=== PATIENT | male | born 1965 | race Caucasian/White ===

== ENCOUNTER → 2018-02-09 07:15 | Outpatient (CLI) | payer BC, SELFPAY ==
[2018-02-09 10:35] LABS: Absolute Lymphocyte Count 1.11 X10^3/ul (0.83-4.51); Absolute Neutrophil Count 3.6 X10^3/uL (2.0-7.7); Basophil# 0.02 X10^3/uL; Basophil% 0.4 % (0-1); Eosinophil# 0.09 X10^3/uL; Eosinophils% 1.6 % (0-5); Hematocrit 49.7 % (40-54); Lymphocyte # 1.11 X10^3/ul (4.0); Mean Corp Hgb Conc 34.2 g/gl (32-36); Mean Corpuscular Hgb 30.4 pg (27.0-32.0); Mean Corpuscular Volume 88.8 fL (80-94); Mean Platelet Vol. 10.7 fl (6.2-12.0); Monocyte# 0.74 X10^3/uL; Monocyte% 13.3 % (0-10); Neutrophil # 3.59 X10^3/uL (2.7-7.7); Neutrophil % 64.5 % (47-70); Platelet Count 202 K/mm3 (150-450); RBC Distribution Width CV 12.7 % (11.6-14.6); RBC Distribution Width SD 41.6 fl (35.1-43.9); White Blood Count 5.6 K/mm3 (4.4-11.0)
[2018-02-09 10:49] LABS: Hemoglobin A1c 7.5 % (4.2-6.3)
[2018-02-09 11:14] LABS: POSITIVE COUNT NO; POSITIVE DIFFERENTIAL NO; POSITIVE MORPHOLOGY NO
[2018-02-09 11:17] LABS: ALB/GLOB Ratio 1.2 RATIO (0.9-2.4); AST(SGOT) 48 U/L (15-37); Alanine Aminotransfer ALT/SGPT 81 U/L (16-61); Albumin, Serum 4.3 g/dL (3.2-5.0); Alkaline Phosphatase 105 U/L (45-117); Anion Gap 7 (5-15); BUN 19 mg/dL (7-18); BUN/Creat Ratio 17.8 RATIO (10-20); Calcium,Total 9.3 mg/dL (8.5-10.1); Chloride 99 mmol/L (98-107); Cholesterol 133 mg/dL (200); Creatinine, Serum 1.07 mg/dL (0.70-1.30); EST Glomerular Filtration Rate 78 mL/min (>60); Est Glom Filt Rate - Afr Amer 94 mL/min (>60); Globulin 3.5 g/dL (2.2-4.2); Glucose 158 mg/dL (74-106); High Density Lipoprotein 51 mg/dL; PSA,Total - Annual Screen 0.93 ng/mL (0.00-4.00); Potassium 4.1 mmol/L (3.5-5.1); Protein, Total 7.8 g/dL (6.4-8.2); Sodium Level 135 mmol/L (136-145); Triglycerides 144 mg/dL; Very Low Density Lipoprotein 29 mg/dL (5-40)
[2018-02-09 11:51] LABS: Microalbumin,Random Urine 37.2 mg/L (NO RANGE EST.); Microalbumin:Creatinine Ratio 40.7 mg/g CRE (<30 mg/g CRE)
== END ==
PROVIDERS: Family Provider Family Medicine; PCP Family Medicine; Visit Provider Family Medicine
DX: E11.9 Type 2 diabetes mellitus without complications (principal); I10 Essential (primary) hypertension; Z12.5 Encounter for screening for malignant neoplasm of prostate
CPT/HCPCS: 36415; 80053; 80061; 82043; 82570; 83036; 84153; 85025; G0103

== ENCOUNTER 2018-04-04 05:38 | Day surgery (SDC) | payer BC, SELFPAY ==
[2018-04-04] VITALS (7 sets, daily range): BP systolic 120–150; BP diastolic 69–108; PULSE 80–87; RESP 16; TEMP 36.4–36.6; O2SAT 93–100; BMI 34.8
--- NOTE | 2018-04-04 06:09 | HP.PCM_ITS ---
Problem List (1) Screening for intestinal cancer Status: Acute History of Present Illness Date of Admission: 04/04/18 The patient is a 52 year old M who presents for screening colonoscopy. He has never had a previous colonoscopy. He has type 2 diabetes but otherwise enjoys good health. Hemoglobin A1c and blood sugar levels are relatively stable. He denies myocardial infarction or stroke. He denies bright red blood per rectum or melena. No abdominal pain. There is no personal or family history of colon polyps or colon cancer. Past Medical History Medical History: Medical History (Last Reviewed 10/05/17 @ 06:48 by ROGERS Pereira) Back pain M54.9 Diabetes E11.9 Neck pain M54.2 Hypertension I10 Allergies Latex, Natural Rubber Allergy (Verified 03/30/18 15:20) Rash Penicillins Allergy (Verified 03/30/18 15:20) Unknown Home Medications: Ambulatory Orders Medication Instructions Recorded Exenatide [Byetta ([facility])] 10 mcg SC BIDAC 11/18/14 Lisinopril/Hydrochlorothiazide 10 mg PO DAILY 11/18/14 [Zestoretic 10/12.5 Tablet] Metformin HCl [Glucophage] 1,000 mg PO BIDCM 11/18/14 Multivitamins,Therapeutic 1 tab PO DAILY 11/18/14 [Multivitamin] Omeprazole [Prilosec] 40 mg PO DAILY 11/18/14 Simvastatin [Zocor] 40 mg PO QHS 11/18/14 Tizanidine HCl [Zanaflex] 4 mg PO Q8H 11/18/14 Celecoxib [Celebrex] 200 mg PO DAILY 11/27/16 Insulin Glargine,Hum.rec.anlog 28 unit SC DAILY 03/30/18 [Tofroylan Leo] Surgical History: Surgical History (Last Reviewed 10/05/17 @ 06:48 by ROGERS Pereira) History of back surgery Z98.890 Smoking Status: Never smoker Review of Systems Constitutional: Denies: Anorexia Eyes: Denies: Blurred vision HEENT: Reports: Difficulty Hearing Cardiovascular: Denies: Chest Pain Respiratory: Denies: Cough Gastrointestinal: Denies: Abdominal Pain Genitourinary: Denies: Dysuria Musculoskeletal: Denies: Arm Pain Neurological: Denies: Balance problems Psychiatric: Denies: Anxiety Endocrine: Denies: Change in Body Habitus VTE Information - Inpt Only VTE Present on Admission: No Patient Problems: Active and Suspected Problems (Last Reviewed 10/05/17 @ 06:48 by ROGERS Pereira ) Screening for intestinal cancer (Acute) - Physical Exam General: Alert, Oriented x3, Cooperative, No apparent distress HEENT: Atraumatic Oral: Moist Mucosa Neck: Supple Lungs: Clear to auscultation Cardiovascular: Regular rate, Regular Rhythm, - - Carotids are 3+, no bruits Abdomen: Bowel Sounds Present, Soft, Non Tender, Non-Distended Extremities: No clubbing Skin: No rashes Lymphatic: No Cervical, Supraclavicular, or Inguinal Adenopathy Neurological: Cranial nerves II-XII grossly intact Psych/Mental Status: Normal Affect Assessment/Plan All Active Problems (Last Reviewed 10/05/17 @ 06:48 by ROGERS Pereira) Screening for intestinal cancer (Acute) URI, acute (Acute) I am recommending a screening colonoscopy with possible biopsy or polypectomy is indicated. I discussed the technique, benefits, risks, alternatives. He has had an opportunity to ask and have questions answered. We will proceed as noted. Miky Dowling M.D., F.A.C.S.
--- NOTE | 2018-04-04 06:30 | COLBX_PTH ---
PATIENT: BRET LUTZ LOC: EN U#:[id number] AGE/SX: 52/M ROOM: RE04/04/[address]: Dr. Miky Dowling MD : [id number] BED: DIS: 04/04/2018 SPEC #: [id number] RECD: 04/04/18 14:20 STATUS: ERICK DAYRON #: [id number] SHANELLE: 04/04/18 06:[address]: Miky Dowling DEPT: SURGICAL PATHOLOGY RECD BY: Estrella Luz ENTERED: 04/04/18 14:48 SP TYPE: COLON BX OTHR DR: Dr. Chris Perry, Tissues: Descending colon Procedures: Surgery Specimen Level IV HEADER OPERATION: Colonoscopy (MOD) PRE-OP DIAGNOSIS: Screening TISSUE SUBMITTED: Polyp, descending colon MICROSCOPIC DIAGNOSIS Polyp descending colon, biopsy: Tubular adenoma. SJ:ursula 04/05/18 MICROSCOPIC DESCRIPTION Slides are reviewed. GROSS DESCRIPTION Received in fixative is one container labeled with the patient's name and designated descending colon polyp. The specimen consists of two irregular fragments of light yost soft tissue that in aggregate measure 0.7 x 0.5 x 0.2 cm. The specimen is totally submitted in one cassette. / AM:ursula 04/04/18 TC:1 CPT: 14055
--- NOTE | 2018-04-04 07:08 | PCM.OPRPT ---
Problem List (1) Screening for intestinal cancer Status: Acute Report of Operation Date of Procedure: 04/04/18 Pre-Operative Diagnosis: Screening for intestinal cancer Post-Operative Diagnosis: Sessile polyp of the descending colon. Sigmoid diverticulosis. Grade 2 internal hemorrhoids Surgery/Procedure Performed:: Colonoscopy with hot snare polypectomy Description of Surgical Findings:: Timeout and informed consent was obtained. 52-year-old gentleman was taken to the endoscopy suite. He was placed in a left lateral decubitus position. 100 mg Demerol 3.5 g of Versed were given as intravenous sedation. Digital rectal exam performed. Moderate internal and external hemorrhoids. 2+ smooth prostate. No mass lesions. Flexible colonoscope inserted the rectum advanced to a slightly tortuous sigmoid colon the scope was then nicely advanced to the transverse colon and with some transabdominal pressure is advanced to the cecum. The cecum ileocecal valve was nicely achieved. Bowel prep was quite good. The scope was carefully withdrawn from the cecum ascending colon transverse colon into the mid to distal sigmoid colon where a 8 mm diameter sessile polyp was identified. Photograph was obtained. Hot snare was used to resect this. Very small fragment was further removed with a cold forcep biopsy. Hemostasis was intact. The scope was then further withdrawn. Moderate sigmoid diverticulosis identified. No evidence of acute inflammatory change. The scope was withdrawn to the rectum. It was retroflexed. The anorectal verge inspected. Hemorrhoidal changes noted. No active bleeding. Excess fluid and air was aspirated free the procedure was completed with patient tolerating it well. Impression Sessile polyp of the descending colon Sigmoid diverticulosis Grade 2 internal hemorrhoids The patient will be notified of pathology results as they become available. This was his very initial colonoscopy. Consider follow-up colonoscopy in 3 years pending pathology. The scope was inserted 0646. The cecum was reached at 0651. The procedure was completed at 0703. Cc: Dr. Chris Dowling M.D., F.A.C.S. Type of Anesthesia:: IV Sedation
== END 2018-04-04 07:47 | disposition home or self-care (01) ==
LOC: EN 05:39 → AC 05:40
PROVIDERS: Family Provider Family Medicine; PCP Family Medicine; Visit Provider Surgery
PROC: 0DJD8ZZ Inspection of Lower Intestinal Tract, Via Natural or Artificial Opening Endoscopic (ICD-10-PCS; CPT 45378; principal; 2018-04-04 06:25)
DX: Z12.11 Encounter for screening for malignant neoplasm of colon (principal); D12.4 Benign neoplasm of descending colon; K57.30 Diverticulosis of large intestine without perforation or abscess without bleeding; K64.1 Second degree hemorrhoids; E11.9 Type 2 diabetes mellitus without complications; I10 Essential (primary) hypertension; Z79.4 Long term (current) use of insulin; Z79.899 Other long term (current) drug therapy
CPT/HCPCS: 45380; 88305; 99152; 99153; J7120

== ENCOUNTER 2018-11-17 10:26 | Day surgery (SDC) | payer OTHER, SELFPAY ==
[2018-11-15 14:06] VITALS: BMI 35.2
[2018-11-17] VITALS (7 sets, daily range): BP systolic 123–135; BP diastolic 83–94; PULSE 83–93; RESP 15–16; TEMP 36.1–36.7; O2SAT 93–96; BMI 34.7
--- NOTE | 2018-11-17 10:31 | EKG12_ITS ---
Test Reason : PREOP Blood Pressure : / mmHG Vent. Rate : 080 BPM Atrial Rate : 080 BPM P-R Int : 162 ms QRS Dur : 132 ms QT Int : 394 ms P-R-T Axes : 049 053 010 degrees QTc Int : 454 ms Normal sinus rhythm Right bundle branch block Abnormal ECG When compared with ECG of 09-MAR-2013 15:28, No significant change was found Confirmed by SONNY AREVALO, SABRA ([id number]), editor farm journal SHAHAB ALANIZ ([id number]) on 11/21/2018 1:16:25 PM Referred By: Miky Dowling Confirmed By:SABRA DENNIS MD
[2018-11-17 10:51] LABS: Hemoglobin 16.6 g/dl (13.0-16.5); Mean Corp Hgb Conc 33.9 g/gl (32-36); Mean Corpuscular Hgb 30.2 pg (27.0-32.0); Mean Corpuscular Volume 89.1 fL (80-94); Mean Platelet Vol. 9.9 fl (6.2-12.0); Platelet Count 178 K/mm3 (150-450); RBC Distribution Width CV 12.8 % (11.6-14.6); RBC Distribution Width SD 42.2 fl (35.1-43.9); White Blood Count 5.8 K/mm3 (4.4-11.0)
[2018-11-17 10:52] LABS: Scan Indicated on CBC? Y/N NO
[2018-11-17 11:06] LABS: Anion Gap 3 (5-15); BUN 18 mg/dL (7-18); BUN/Creat Ratio 18.1 RATIO (10-20); Chloride 105 mmol/L (98-107); EST Glomerular Filtration Rate 84 mL/min (>60); Est Glom Filt Rate - Afr Amer 102 mL/min (>60); Glucose 152 mg/dL (74-106); Potassium 4.2 mmol/L (3.5-5.1); Sodium Level 138 mmol/L (136-145)
--- NOTE | 2018-11-17 12:58 | PCM.DC.GS ---
Discharge Diet: Light diet - advance as tolerated - if you have questions about your diet instructions, please talk to you doctor. Discharge Activity: May Not Drive - for 3-5days or while taking narcotic pain medicine. May shower in (days): 1 Lifting Restrictions: 10 pounds Call your doctor if your incision/area has: Continuous Slow Oozing, Sudden Increased Bleeding, Increased Pain/ Swelling, Increased Redness, Foul Smelling Discharge Call your doctor if you observe: Fever of 101 or Higher Suture Line Care: Avoid Pulling/Pushing, Avoid Pinching/Bending Additional Dressing/Incision Instructions:: Change or remove dressing in 4 days. Leave steri-strips in place for 1 week. Allergies/Adverse Reactions: Allergies Penicillins Allergy (Mild, Verified 11/16/18 10:10) hives Latex, Natural Rubber Allergy (Verified 11/16/18 10:10) Rash Medications to take at Discharge Exenatide [Byetta ([facility])] 10 mcg SC BIDAC 11/18/14 Lisinopril/Hydrochlorothiazide [Zestoretic 10/12.5 Tablet] 10 mg PO DAILY 11/18/14 Metformin HCl [Glucophage] 1,000 mg PO BIDCM 11/18/14 Multivitamins,Therapeutic [Multivitamin] 1 tab PO DAILY 11/18/14 Simvastatin [Zocor] 40 mg PO QHS 11/18/14 Tizanidine HCl [Zanaflex] 4 mg PO QHS 11/18/14 omeprazole 40 mg capsule,delayed release 20 mg PO DAILY cap 04/21/18 insulin glargine (U-100) 100 unit/mL (3 mL) subcutaneous pen See Rx Instructions SC BID ml 08/24/18 cholecalciferol (vitamin D3) 5,000 unit capsule 5,000 unit PO DAILY 11/15/18 zolpidem 10 mg tablet 10 mg PO QHS PRN 11/15/18 Aspirin E.C. [Ecotrin] 81 mg PO DAILY@0800 11/16/18 Hydrocodone Bitart/Apap 5-325 [[place] 5MG-325MG] 1 tablet PO Q4H PRN PRN 3 Days #10 tablet 11/17/18 The following prescriptions were given: Hydrocodone Bitart/Apap 5-325 [[place] 5MG-325MG] 1 tablet PO Q4H PRN PRN 3 Days #10 tablet PRN Reason: Pain Primary Care Physician: Chris Perry DO [Primary Care Provider] - Test Results: Test results from this visit will be discussed in further detail at your follow-up appointment, if applicable. Please Follow Up With: Miky Dowling MD - [phone] When: Call to make an appointment to be seen in about 10 days.
[2018-11-17 13:10] LABS: Bedside Glucose 141 mg/dL (70-110)
[2018-11-17] MEDS: Bupivacaine Mpf 0.5% 30 ML VIAL (14:20)
--- NOTE | 2018-11-17 14:28 | PCM.OPRPT ---
Problem List (1) Recurrent right inguinal hernia Status: Acute (2) Left inguinal hernia Status: Acute Report of Operation Date of Procedure: 11/17/18 Pre-Operative Diagnosis: Recurrent right inguinal hernia. Left inguinal hernia Post-Operative Diagnosis: Recurrent indirect right inguinal hernia. Indirect left inguinal hernia Surgery/Procedure Performed:: Laparoscopic repair of recurrent right inguinal hernia. Laparoscopic repair left inguinal hernia. The right large Bard 3 DMax mesh reference #[id number]. Lot number [employer] [id number]. Expiry date 01/24/2023. The left large Bard 3 DMax mesh reference #[id number]. Lot number [employer] [id number]. Expiry date 06/26/2023 Description of Surgical Findings:: Timeout and informed consent was obtained. Gent was taken down from placement table underwent general tracheal intubation and anesthesia. Clindamycin 900 mg was given intravenous preoperatively. The abdomen sterilely prepped draped. 0.5% Marcaine was used as local anesthetic. Throughout the procedure total 30 cc was used. Skin sites were pre-anesthetized. A vertical infraumbilical incision was created holding sutures of 0 Vicryl placed varies needle inserted saline drop test performed the abdomen was insufflated CO2 to a pressure of 10 minutes of mercury. Primary trocar sites were placed in the right and left lower quadrants. Ileal inguinal nerve blocks were performed bilaterally under laparoscopic control. The left groin was addressed first the peritoneum superior lateral to the internal ring was incised carried medially. The peritoneum was completely dissected free. A moderate-sized cord lipoma was identified this was completely inverted. Were needed hemostasis obtained with hemo-lock clips. The direct indirect and femoral area was nicely dissected. A Bard 3 DMax large left mesh was placed so as to cover the defect area it was secured laterally superiorly and medially with secure strap. End of the right groin was addressed in a similar fashion by incising the peritoneum and reflecting it. A small indirect right inguinal hernia was identified. The dissection was completed as it was on the left. A Bard 3 DMax large right mesh was selected it to nicely fit in the position it was secured medially superiorly and laterally with secure strap. Then the peritoneum was approximated to itself bilaterally completely obliterating access to the mesh. This also was performed with a secure strap. Excellent placement of the mesh and replacement of the peritoneum was achieved. Trochars removed under visualization the abdomen was allowed to deflate the CO2 the fascia at the umbilicus approximated with a [id number] suture of 0 Vicryl. Skin edges approximated up to 4 Monocryl subdermal stitches. Steri-Strips Telfa and OpSite dressings applied. Sponge and instrument and needle counts were reported the surgeon be correct. Blood loss was minimal. Specimens none. Drains none. Blood loss minimal. Miky Dowling M.D., F.A.C.S. Type of Anesthesia:: General Anesthesiologist: Sha Ramirez
--- NOTE | 2018-11-17 14:32 | OP.PCM_ITS ---
Problem List (1) Recurrent right inguinal hernia Status: Acute (2) Left inguinal hernia Status: Acute Report of Operation Date of Procedure: 11/17/18 Pre-Operative Diagnosis: Recurrent right inguinal hernia. Left inguinal hernia Post-Operative Diagnosis: Recurrent indirect right inguinal hernia. Indirect left inguinal hernia Surgery/Procedure Performed:: Laparoscopic repair of recurrent right inguinal hernia. Laparoscopic repair left inguinal hernia. The right large Bard 3 DMax mesh reference #[id number]. Lot number [employer] [id number]. Expiry date 01/24/2023. The left large Bard 3 DMax mesh reference #[id number]. Lot number [employer] [id number]. Expiry date 06/26/2023 Description of Surgical Findings:: Timeout and informed consent was obtained. Gent was taken down from placement table underwent general tracheal intubation and anesthesia. Clindamycin 900 mg was given intravenous preoperatively. The abdomen sterilely prepped draped. 0.5% Marcaine was used as local anesthetic. Throughout the procedure total 30 cc was used. Skin sites were pre-anesthetized. A vertical infraumbilical incision was created holding sutures of 0 Vicryl placed varies needle inserted saline drop test performed the abdomen was insufflated CO2 to a pressure of 10 minutes of mercury. Primary trocar sites were placed in the right and left lower quadrants. Ileal inguinal nerve blocks were performed bilaterally under laparoscopic control. The left groin was addressed first the peritoneum superior lateral to the internal ring was incised carried medially. The cedric toneum was completely dissected free. A moderate-sized cord lipoma was identified this was completely inverted. Were needed hemostasis obtained with hemo-lock clips. The direct indirect and femoral area was nicely dissected. A Bard 3 DMax large left mesh was placed so as to cover the defect area it was secured laterally superiorly and medially with secure strap. End of the right groin was addressed in a similar fashion by incising the peritoneum and reflecting it. A small indirect right inguinal hernia was identified. The dissection was completed as it was on the left. A Bard 3 DMax large right mesh was selected it to nicely fit in the position it was secured medially superiorly and laterally with secure strap. Then the peritoneum was approximated to itself bilaterally completely obliterating access to the mesh. This also was performed with a secure strap. Excellent placement of the mesh and replacement of the peritoneum was achieved. Trochars removed under visualization the abdomen was allowed to deflate the CO2 the fascia at the umbilicus approximated with a [id number] suture of 0 Vicryl. Skin edges approximated up to 4 Monocryl subdermal stitches. Steri-Strips Telfa and OpSite dressings applied. Sponge and instrument and needle counts were reported the surgeon be correct. Blood loss was minimal. Specimens none. Drains none. Blood loss minimal. Miky Dowling M.D., F.A.C.S. Type of Anesthesia:: General Anesthesiologist: Sha Ramirez
[2018-11-17 15:16] LABS: Bedside Glucose 144 mg/dL (70-110)
== END 2018-11-17 16:49 | disposition home or self-care (01) ==
LOC: SDC 10:27 → AC 10:28
PROVIDERS: Family Provider Family Medicine; PCP Family Medicine; Referring Provider Surgery; Visit Provider Surgery
PROC: (CPT 49650; principal; 2018-11-17 12:10)
DX: K40.91 Unilateral inguinal hernia, without obstruction or gangrene, recurrent (principal); K40.90 Unilateral inguinal hernia, without obstruction or gangrene, not specified as recurrent; I10 Essential (primary) hypertension; E11.9 Type 2 diabetes mellitus without complications; K21.9 Gastro-esophageal reflux disease without esophagitis; E78.00 Pure hypercholesterolemia, unspecified; Z79.4 Long term (current) use of insulin; Z79.82 Long term (current) use of aspirin; Z79.899 Other long term (current) drug therapy
CPT/HCPCS: 49650; 49651; 36415; 80048; 82962; 83036; 85027; 93005; J7120; C1781; J2405

== ENCOUNTER → 2020-01-09 | Outpatient (CLI) | payer OTHER, SELFPAY ==
[2019-11-11 10:44] VITALS: BMI 34.7
[2020-01-09 12:04] LABS: Absolute Lymphocyte Count 1.61 X10^3/uL (0.83-4.51); Absolute Neutrophil Count 3.8 X10^3/uL (2.0-7.7); Basophil# 0.04 X10^3/uL; Basophil% 0.6 % (0-1); Eosinophil# 0.07 X10^3/uL; Eosinophils% 1.1 % (0-5); Hematocrit 50.1 % (40-54); Hemoglobin 16.6 g/dL (13.0-16.5); Lymphocyte # 1.61 X10^3/ul (4.0); Lymphocyte % 25.9 % (19-41); Mean Corp Hgb Conc 33.1 g/dL (32-36); Mean Corpuscular Hgb 29.8 pg (27.0-32.0); Mean Corpuscular Volume 89.9 fL (80-94); Mean Platelet Vol. 10.7 fl (6.2-12.0); Monocyte# 0.67 X10^3/uL; Monocyte% 10.8 % (0-10); NRBC Flagged by Analyzer 0 % (0-5); Neutrophil # 3.81 X10^3/uL (2.7-7.7); Neutrophil % 61.3 % (47-70); Platelet Count 188 K/mm3 (150-450); RBC Distribution Width CV 12.9 % (11.6-14.6); RBC Distribution Width SD 42.5 fl (35.1-43.9); Red Blood Count 5.57 M/mm3 (4.6-6.2); White Blood Count 6.2 K/mm3 (4.4-11.0)
[2020-01-09 12:14] LABS: ALB/GLOB Ratio 1.2 RATIO (0.9-2.4); AST(SGOT) 37 U/L (15-37); Alanine Aminotransfer ALT/SGPT 68 U/L (16-61); Alkaline Phosphatase 73 U/L (45-117); Anion Gap 11 (5-15); BUN 23 mg/dL (7-18); BUN/Creat Ratio 20.2 RATIO (10-20); Calcium,Total 9.1 mg/dL (8.5-10.1); Chloride 99 mmol/L (98-107); Cholesterol 138 mg/dL (200); Creatinine, Serum 1.14 mg/dL (0.70-1.30); EST Glomerular Filtration Rate 72 mL/min (>60); Est Glom Filt Rate - Afr Amer 87 mL/min (>60); Globulin 3.3 g/dL (2.2-4.2); Glucose 108 mg/dL (74-106); High Density Lipoprotein 54 mg/dL; PSA,Total - Annual Screen 0.81 ng/mL (0.00-4.00); Potassium 4.2 mmol/L (3.5-5.1); Protein, Total 7.3 g/dL (6.4-8.2); Sodium Level 139 mmol/L (136-145); Triglycerides 84 mg/dL; Very Low Density Lipoprotein 17 mg/dL (5-40)
[2020-01-09 12:17] LABS: Hemoglobin A1c 6.5 % (4.2-6.3)
[2020-01-09 12:22] LABS: Microalbumin,Random Urine 7.8 mg/L (NO RANGE EST.); Microalbumin:Creatinine Ratio 6.4 mg/g CRE (<30 mg/g CRE)
[2020-01-11 03:39] LABS: SAR-COV-2 IGG ANTIBODY Negative (Negative); SAR-COV-2 IGM ANTIBODY Negative (Negative)
== END | disposition home or self-care (01) ==
LOC: BFHLAB 09:30
PROVIDERS: PCP Family Medicine; Visit Provider Family Medicine
DX: E11.9 Type 2 diabetes mellitus without complications (principal); I10 Essential (primary) hypertension; R74.8 Abnormal levels of other serum enzymes; Z12.5 Encounter for screening for malignant neoplasm of prostate; Z20.828 Contact with and (suspected) exposure to other viral communicable diseases
CPT/HCPCS: 36415; 80053; 80061; 82043; 82570; 83036; 84153; 85025; 86769; G0103

== ENCOUNTER → 2020-07-10 08:10 | Outpatient (CLI) | payer OTHER, SELFPAY ==
[2019-11-11 10:44] VITALS: BMI 34.7
[2020-07-10 12:13] LABS: Absolute Lymphocyte Count 1.78 X10^3/uL (0.83-4.51); Absolute Neutrophil Count 3.6 X10^3/uL (2.0-7.7); Basophil# 0.05 X10^3/uL; Basophil% 0.8 % (0-1); Eosinophil# 0.12 X10^3/uL; Hematocrit 52.7 % (40-54); Lymphocyte # 1.78 X10^3/ul (4.0); Lymphocyte % 29.1 % (19-41); Mean Corp Hgb Conc 32.3 g/dL (32-36); Mean Corpuscular Hgb 29.1 pg (27.0-32.0); Mean Corpuscular Volume 90.2 fL (80-94); Mean Platelet Vol. 10.2 fl (6.2-12.0); Monocyte# 0.53 X10^3/uL; Monocyte% 8.7 % (0-10); NRBC Flagged by Analyzer 0 % (0-5); Neutrophil # 3.62 X10^3/uL (2.7-7.7); Neutrophil % 59.1 % (47-70); Platelet Count 219 K/mm3 (150-450); RBC Distribution Width CV 12.3 % (11.6-14.6); RBC Distribution Width SD 40.3 fl (35.1-43.9); Red Blood Count 5.84 M/mm3 (4.6-6.2); White Blood Count 6.1 K/mm3 (4.4-11.0)
[2020-07-10 12:54] LABS: Hemoglobin A1c 6.5 % (3.8-5.6)
[2020-07-10 13:13] LABS: ALB/GLOB Ratio 1.2 RATIO (0.9-2.4); AST(SGOT) 47 U/L (15-37); Alanine Aminotransfer ALT/SGPT 88 U/L (16-61); Albumin, Serum 4.2 g/dL (3.2-5.0); Alkaline Phosphatase 94 U/L (45-117); Anion Gap 7 (5-15); BUN 21 mg/dL (7-18); BUN/Creat Ratio 19.1 RATIO (10-20); Calcium,Total 9.1 mg/dL (8.5-10.1); Chloride 99 mmol/L (98-107); Cholesterol 138 mg/dL (200); EST Glomerular Filtration Rate 75 mL/min (>60); Est Glom Filt Rate - Afr Amer 90 mL/min (>60); Globulin 3.4 g/dL (2.2-4.2); Glucose 140 mg/dL (74-106); High Density Lipoprotein 58 mg/dL; Potassium 4.2 mmol/L (3.5-5.1); Protein, Total 7.6 g/dL (6.4-8.2); Sodium Level 134 mmol/L (136-145); Triglycerides 128 mg/dL; Very Low Density Lipoprotein 26 mg/dL (5-40)
== END ==
PROVIDERS: PCP Family Medicine; Visit Provider Family Medicine
DX: E11.9 Type 2 diabetes mellitus without complications (principal); I10 Essential (primary) hypertension; R80.9 Proteinuria, unspecified
CPT/HCPCS: 36415; 80053; 80061; 83036; 85025

== ENCOUNTER → 2020-11-04 14:34 | Outpatient (CLI) | payer OTHER, SELFPAY ==
[2020-09-25 13:25] VITALS: BMI 35.9
--- NOTE | 2020-11-04 14:37 | US_ITS ---
STUDY: SCROTUM ULTRASOUND REASON FOR EXAM: Male, 54 years old. L GROIN/SCROTAL PAIN, QUESTION EPIDIDYMITIS TECHNIQUE: Ultrasound evaluation of the scrotum was performed with color Doppler and static prabhakar-scale imaging. COMPARISON: None. FINDINGS: RIGHT TESTICLE INTRATESTICULAR: There is a normal size of the right testicle. The right testicle measures 4.5 x 3.2 x 2.9 cm. There is a homogenous echotexture. There is normal arterial and normal venous vascularity. There is no demonstrated right testicular mass or cyst. EXTRATESTICULAR: The epididymis is normal in size. The epididymis head measures 1.0 x 1.2 x 0.9 cm. There is normal vascularity of the epididymis. There is a well-defined cystic structure within the epididymis, without internal echoes, consistent with an epididymal cyst. One epididymal cyst measures 4.2 cm in diameter. There is no demonstrated hydrocele. There is no demonstrated varicocele. There is no demonstrated extratesticular mass or cyst. LEFT TESTICLE INTRATESTICULAR: There is a normal size of the left testicle. The left testicle measures 4.2 x 3.5 x 3.0 cm. There is a homogenous echotexture. There is normal arterial and normal venous vascularity. There is no demonstrated left testicular mass or cyst. EXTRATESTICULAR: The epididymis is enlarged. The epididymis head measures cm. There is normal vascularity of the epididymis. There is a well-defined cystic structure within the epididymis, without internal echoes, consistent with an epididymal cyst. There are multiple epididymal cysts with the largest measuring 4 x 6 cm. There is no demonstrated hydrocele. There is no demonstrated varicocele. There is no demonstrated extratesticular mass or cyst. US/Testicular with Arterial Flow IMPRESSION: Normal bilateral testicles. Large epididymal cysts bilaterally. Electronically Signed: Wesley Montalvo MD at 15:40 EST Tel , Service support ,
== END ==
PROVIDERS: PCP Family Medicine; Referring Provider Family Medicine; Visit Provider Family Medicine
DX: N50.82 Scrotal pain (principal)
CPT/HCPCS: 76870; 93976

== ENCOUNTER 2020-11-20 08:23 | Day surgery (SDC) | payer OTHER, SELFPAY ==
[2020-09-25 13:25] VITALS: BMI 35.9
[2020-11-20] VITALS (7 sets, daily range): BP systolic 137–155; BP diastolic 76–113; PULSE 74–89; RESP 16–18; TEMP 36.3–37.2; O2SAT 92–98; BMI 36.0
--- NOTE | 2020-11-20 09:15 | PCM.HP.STD ---
Problem List (1) Spermatocele Status: Acute History of Present Illness Date of Admission: 11/20/20 Chief Complaint: Spermatocele left The patient is a 54 year old male presents with a symptomatic painful left spermatocele plan proceed with a spermatocelectomy. 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 Carpal tunnel syndrome, bilateral (Acute) G56.03 Bilateral inguinal hernia K40.20 Allergies Penicillins Allergy (Mild, Verified 11/13/20 14:10) hives latex Allergy (Verified 11/13/20 14:10) Rash Home Medications: Ambulatory Orders Medication Instructions Recorded Lisinopril/Hydrochlorothiazide 10 mg PO DAILY 11/18/14 [Zestoretic 10/12.5 Tablet] Simvastatin [Zocor] 40 mg PO DAILY 11/18/14 metFORMIN HCl [Glucophage] 1,000 mg PO BIDCM 11/18/14 insulin glargine 100 unit/mL (3 36 units SC BID ml 08/24/ mL) subcutaneous pen exenatide 10 mcg SC BIDAC 09/29/19 omeprazole 20 mg capsule,delayed 20 mg PO DAILY cap 09/25/20 release tizanidine 4 mg tablet 4 mg PO QHS PRN PRN tab 09/25/20 zolpidem 10 mg tablet 10 mg PO QHS tab 09/25/20 Surgical History: Surgical History (Last Reviewed 09/25/20 @ 13:30 by Lucia Fernández) History of colonoscopy (Acute) Onset Date: ~03/2018 Z98.890 History of right inguinal hernia repair (Acute) Z98.890, Z87.19 History of carpal tunnel release (Acute) Z98.890 History of back surgery (Acute) Z98.890 H/O microdiscectomy (Acute) Z98.890 S/P bilateral inguinal herniorrhaphy Onset Date: ~11/17/18 Z98.890, Z87.19 Surgical History: no surgical history Smoking Status: Never smoker Review of Systems Constitutional: Denies: Chills, Fever, Weight Change HEENT: Denies: Head Aches, Sinus Congestion, Sinus Drainage Cardiovascular: Denies: Chest Pain, Palpitations Respiratory: Denies: Cough, Shortness of breath at rest, Sputum production Gastrointestinal: Denies: Abdominal Pain, Nausea, Vomiting Genitourinary: Denies: Dysuria Musculoskeletal: Denies: Joint Pain, Joint Tenderness Skin: Denies: Rash, Wounds Neurological: Denies: Numbness, Tingling, Focal weakness Psychiatric: Denies: Anxiety, Depression, Homicidal Ideations, Suicidal Ideations Hematologic/ Lymphatic: Denies: Easy Bruising, Easy Bleeding VTE Information - Inpt Only VTE Present on Admission: No - Physical Exam Vitals/I&O's: Vital Signs Temp Pulse Resp BP Pulse Ox 99.0 F 75 16 137/100 H 98 11/20/20 08:50 11/20/20 08:50 11/20/20 08:50 11/20/20 08:50 11/20/20 08:50 Oxygen Delivery Method Room Air Weight: 117.2 kg Body Mass Index (BMI) 36.0 General: Alert, Oriented x3, Cooperative HEENT: Atraumatic, PERRLA, EOMI, Normocephalic Neck: Supple, No JVD, Negative Carotid Bruits Lungs: Clear to auscultation, Normal air movement Cardiovascular: Regular rate, No murmurs Abdomen: Bowel Sounds Present, Soft, Non Tender Extremities: No edema, Capillary Refill Less than 3 Seconds Skin: No rashes, No breakdown Musculoskeletal: No Tenderness to Palpation of Joints or Extremities Neurological: Cranial nerves II-XII grossly intact Psych/Mental Status: Normal Affect, Appropriate Microbiology Past 72 Hours 11/19/20 08:35 Interface Orders SARS-CoV-2 Antigen (Rapid) - Final Current Medications Cefazolin Sodium 2 gm/ Sodium (Chloride) 110 mls @ 150 mls/hr IV PREOP ONE Stop: 11/20/20 10:58 Assessment/Plan All Active Problems (Last Reviewed 09/25/20 @ 13:30 by Lucia M Pradeep) Spermatocele (Acute) Left groin pain (Acute) Bronchitis (Acute) URI (upper respiratory infection) (Acute) Conjunctivitis, right eye (Acute) Recurrent right inguinal hernia (Acute) Left inguinal hernia (Acute) History of colonoscopy (Acute ~03/2018) History of right inguinal hernia repair (Acute) History of carpal tunnel release (Acute) Diabetes (Acute) Neck pain (Acute) Back pain (Acute) History of back surgery (Acute) Cancer of skin of right ear (Resolved) Carpal tunnel syndrome, bilateral (Acute) H/O microdiscectomy (Acute) Screening for intestinal cancer (Acute) URI, acute (Acute) Plan for a left spermatocelectomy
--- NOTE | 2020-11-20 09:16 | DCINST_ITS ---
Discharge Diet: Light diet - advance as tolerated Discharge Activity: Return to Normal Activity Allergies/Adverse Reactions: Allergies Penicillins Allergy (Mild, Verified 11/13/20 14:10) hives latex Allergy (Verified 11/13/20 14:10) Rash Medications to take at Discharge Lisinopril/Hydrochlorothiazide [Zestoretic 10/12.5 Tablet] 10 mg PO DAILY 11/18/14 Simvastatin [Zocor] 40 mg PO DAILY 11/18/14 metFORMIN HCl [Glucophage] 1,000 mg PO BIDCM 11/18/14 insulin glargine 100 unit/mL (3 mL) subcutaneous pen 36 units SC BID ml 08/24/18 exenatide 10 mcg SC BIDAC 09/29/19 omeprazole 20 mg capsule,delayed release 20 mg PO DAILY cap 09/25/20 tizanidine 4 mg tablet 4 mg PO QHS PRN PRN tab 09/25/20 zolpidem 10 mg tablet 10 mg PO QHS tab 09/25/20 Primary Care Physician: Chris Perry DO [Primary Care Provider] - Test Results: Test results from this visit will be discussed in further detail at your follow- up appointment, if applicable. Please Follow Up With: Ernesto Wadsworth MD When: in 2 weeks, please call to make an appointment.
[2020-11-20] MEDS: Lactated Ringers 1,000 ML 100 ML IV (09:19)
[2020-11-20 09:26] LABS: Bedside Glucose 154 mg/dL (70-110)
[2020-11-20] MEDS: Cefazolin 2 GM in 0.9% Normal Saline 100 ML IV (10:26)
[2020-11-20] MEDS: Bupivacaine 0.25% 30 ML Vial (11:09)
--- NOTE | 2020-11-20 11:29 | PCM.OPRPT ---
Problem List (1) Spermatocele Status: Acute Report of Operation Date of Procedure: 11/20/20 Pre-Operative Diagnosis: Bilateral large symptomatic spermatoceles Post-Operative Diagnosis: Same Surgery/Procedure Performed:: Right spermatocelectomy, and left spermatocelectomy Description of Surgical Findings:: In the preoperative setting the patient was consulted regarding the spermatocele. We discussed the options of management including observation, surgical excision, continued medical management and antibiotics. We discussed the risk of the surgery including the risk of bleeding, infection, abscess formation, and also the risk of recurrence of this spermatocele. He also understands that removing the spermatocele may not alleviate pain . After discussion with the patient he signed the consent form and is taken back to the operating room. Patient was taken back to the operating room, he underwent a timeout procedure was identified by the nursing staff. He then was placed supine on the table and underwent general anesthesia. The penis testicles were shaved prepped and draped in usual sterile fashion. I then palpated the spermatocele on the Left side of the scrotum above the testicle which was very large. The spermatocele then brought close to the skin of the scrotum on that side and I infiltrated above the spermatocele with a skin with Marcaine 1% for local anesthesia. Then using a 15 blade knife a small 3-1/2 cm incision was made above the spermatocele. I then using hemostats I spread this incision and then the tunica albuginea was grabbed using 2 Allises the tunica albuginea was then opened up and then this allowed me to region the small incision with a long Allis to grab the head of the spermatocele. I then pulled the spermatocele head through the small incision and used a needle to drain it and then I continued to pull the spermatocele through the small incision draining all the fluid out and then the sac was slowly delivered to the small incision I use electrocautery with a pinpoint needle to dissect the spermatocele sac off the testicle. Once the entire sac was delivered to the small incision then the testicle placed back in proper position the major there was a good hemostasis. I then palpated the spermatocele on the right side of the scrotum above the testicle about 3cm in size. I then using hemostats I spread this incision and then the tunica albuginea was grabbed using 2 Allises the tunica albuginea was then opened up and then this allowed me to region the small incision with a long Allis to grab the head of the spermatocele. I then pulled the spermatocele head through the small incision and used a needle to drain it and then I continued to pull the spermatocele through the small incision draining all the fluid out and then the sac was slowly delivered to the small incision I use electrocautery with a pinpoint needle to dissect the spermatocele sac off the testicle. Once the entire sac was delivered to the small incision then the testicle placed back in proper position the major there was a good hemostasis. I then closed the dartos layer with chromic and then closed the skin layer with a running Monocryl stitches fluff dressings and scrotal support was placed on the testicles patient acetic was reversed and is taken back to the PACU in good condition. Type of Anesthesia:: General Drains: none - Admit VTE Documentation VTE Present on Admission: No
[2020-11-20 11:36] LABS: Bedside Glucose 110 mg/dL (70-110)
[2020-11-20] MEDS: Ketorolac 15 MG/ML Vial IV (11:39)
[2020-11-20] MEDS: oxyCODONE 5 MG Tablet PO (12:57)
== END 2020-11-20 13:20 | disposition home or self-care (01) ==
LOC: SDC 08:24 → AC 08:24
PROVIDERS: PCP Family Medicine; Referring Provider Urology; Visit Provider Urology
PROC: (CPT 54840; principal; 2020-11-20 10:15)
DX: N43.42 Spermatocele of epididymis, multiple (principal); I10 Essential (primary) hypertension; E11.9 Type 2 diabetes mellitus without complications; Z79.4 Long term (current) use of insulin; K21.9 Gastro-esophageal reflux disease without esophagitis; E78.00 Pure hypercholesterolemia, unspecified; Z79.899 Other long term (current) drug therapy; Z20.822 Contact with and (suspected) exposure to COVID-19
CPT/HCPCS: 00920; 54840; 82962; 87426; C9803; J7120; J2405

== ENCOUNTER → 2020-12-24 07:54 | Outpatient (CLI) | payer OTHER, SELFPAY ==
[2020-11-20 08:50] VITALS: BMI 36.0
[2020-12-24 10:34] LABS: Hemoglobin A1c 6.2 % (3.8-5.6)
[2020-12-24 10:38] LABS: Microalbumin,Random Urine 30.2 mg/L (NO RANGE EST.); Microalbumin:Creatinine Ratio 30.7 mg/g CRE (<30 mg/g CRE)
[2020-12-24 10:44] LABS: ALB/GLOB Ratio 1.3 RATIO (0.9-2.4); AST(SGOT) 33 U/L (15-37); Alanine Aminotransfer ALT/SGPT 69 U/L (16-61); Albumin, Serum 4.1 g/dL (3.2-5.0); Alkaline Phosphatase 96 U/L (45-117); Anion Gap 7 (5-15); BUN 24 mg/dL (7-18); Calcium,Total 9.3 mg/dL (8.5-10.1); Chloride 102 mmol/L (98-107); Cholesterol 150 mg/dL (200); Creatinine, Serum 1.09 mg/dL (0.70-1.30); EST Glomerular Filtration Rate 75 mL/min (>60); Est Glom Filt Rate - Afr Amer 91 mL/min (>60); Globulin 3.2 g/dL (2.2-4.2); Glucose 123 mg/dL (74-106); High Density Lipoprotein 59 mg/dL; Potassium 4.1 mmol/L (3.5-5.1); Protein, Total 7.3 g/dL (6.4-8.2); Sodium Level 137 mmol/L (136-145); Triglycerides 122 mg/dL; Very Low Density Lipoprotein 24 mg/dL (5-40)
== END ==
PROVIDERS: PCP Family Medicine; Referring Provider Family Medicine; Visit Provider Family Medicine
DX: E11.9 Type 2 diabetes mellitus without complications (principal); I10 Essential (primary) hypertension; R80.9 Proteinuria, unspecified
CPT/HCPCS: 36415; 80053; 80061; 82043; 82570; 83036

== ENCOUNTER → 2021-09-01 | Outpatient (CLI) | payer OTHER, SELFPAY | END | disposition short-term general hospital (02) | LOC: LABSPEC 14:15 | PROVIDERS: PCP Family Medicine; Visit Provider Family Medicine | DX: Z20.828 Contact with and (suspected) exposure to other viral communicable diseases (principal); U07.1 COVID-19 | CPT/HCPCS: 87635; U0003; U0005 ==

== ENCOUNTER 2021-09-08 18:10 | Outpatient (CLI) | payer OTHER, SELFPAY ==
[2021-09-08] MEDS: 0.9% Saline Lock 10 ML Syringe IV (18:31)
[2021-09-08 18:33] VITALS: BP 145/100; PULSE 93; RESP 16; TEMP 36.6; O2SAT 97; BMI 35.5
[2021-09-08 18:58] VITALS: BP 157/109; PULSE 88; RESP 16; TEMP 36.9; O2SAT 98
[2021-09-08 20:00] VITALS: BP 164/107; PULSE 74; RESP 16; TEMP 36.6; O2SAT 98
== END 2021-09-08 23:59 | disposition home or self-care (01) ==
LOC: MS3OUT 18:10 → MS3 18:12
PROVIDERS: PCP Family Medicine; Referring Provider Nurse Practitioner Adult Health; Visit Provider Nurse Practitioner Adult Health
DX: U07.1 COVID-19 (principal)
CPT/HCPCS: J7050; M0243; A4216; Q0244

== ENCOUNTER 2021-10-31 07:55 | Day surgery (SDC) | payer OTHER, SELFPAY ==
--- NOTE | 2021-10-31 | BON_PTH ---
PATIENT: BRET LUTZ [place] [facility] [place][id number] AGE/SX: 55/M ROOM: RE10/31/[address]: Dr. Harlan Davalos DPM : 1965 BED: DIS: 10/31/2021 SPEC #: [id number] RECD: 10/31/21 13:15 STATUS: ERICK REKang #: [id number] SHANELLE: 10/31/21 00:[address]: Harlan Davalos DEPT: SURGICAL PATHOLOGY RECD BY: Earl Rincon ENTERED: 11/03/21 09:18 SP TYPE: Bone OTHR DR: Dr. Chris Perry, DO Tissues: Bone of foot, NOS Procedures: Decalcification bone/plaque Surgery Specimen Level III HEADER OPERATION: Arthroplasty/arthrodesis, toe, fourth and fifth PRE-OP DIAGNOSIS: Hammertoe right foot, pain right toe TISSUE SUBMITTED: Right fourth and fifth hammertoe MICROSCOPIC DIAGNOSIS Right fourth and fifth hammertoe: Pieces of bone with reactive changes, clinically hammertoe. GREGORIA:ursula 11/06/2021 MICROSCOPIC DESCRIPTION Slides are reviewed. GROSS DESCRIPTION Received in fixative is one container labeled with the patient's name and designated right fourth and fifth hammertoe. The specimen consists of two pieces of bone measuring 1 x 0.5 x 0.3 cm and 1 x 0.5 x 0.5 cm. The entire specimen is submitted in one cassette after decalcification. / GREGORIA:ursula 11/03/2021 TC:5 CPT: 85034, 82182
[2021-10-31 08:41] LABS: Bedside Glucose 171 mg/dL (74-106)
--- NOTE | 2021-10-31 09:40 | RAD_ITS ---
STUDY: X-RAY RIGHT FOOT, FOURTH AND FIFTH TOE REASON FOR EXAM: Male, 55 years old. ARTHROPLASTY/ARTHRODESIS TOE 4TH AND 5TH TECHNIQUE: 1 intraoperative fluoroscopic view(s) of the toe were obtained. COMPARISON: None. FINDINGS: The images shows midline osteotomy defects through the middle and distal phalanges and the head of the proximal phalanx, which is been partially resected. Partial resection of the head of the fifth proximal phalanx also noted. RAD/Toe(s) Min 2 Views IMPRESSION: Intraoperative visualization Electronically Signed: Andrew Patino MD at 15:57 EST ,
[2021-10-31] MEDS: Bupivacaine Mpf 0.5% 30 ML VIAL (10:56)
--- NOTE | 2021-10-31 11:18 | PCM.DC ---
Discharge Instructions Diet Discharge Diet: Light diet - advance as tolerated Activity Weight Bearing Status: No weight bearing (No weightbearing right foot) Keep extremity elevated above heart level: Right Leg (Keep right foot elevated with pillows for at least 50 minutes of every hour.) Dressing / Incision Call your doctor if your incision/area has: Continuous Slow Oozing, Sudden Increased Bleeding and Foul Smelling Discharge Call your doctor if you observe: Fever of 101 or Higher, Coldness, Increased Pain, Shortness of breath, Chest pain, Increased palpitations (irregular heartbeat), Calf discomfort and Uncontrolled pain Change Dressing in: do not change dressing Remove Dressing in: leave in place till F/U Cleanse incision/area with: Do not get Incision Wet and Keep Dressing Clean & Dry Follow Up Care Please Follow Up With: Harlan Davalos DPM When: Next week in office, sooner if needed. Office number: [phone] Dr. Davalos pager/cell: [phone] Test Results: Test results from this visit will be discussed in further detail at your follow-up appointment, if applicable. Discharge Plan Admission Attending Provider: Harlan Davalos Primary Care Provider: Chris Perry Discharge Orders/Prescriptions Prescriptions: No Action Lantus Solostar U-100 Insulin 100 unit/mL (3 mL) insulin pen 42 units SC BID RF: 0 tizanidine 4 mg tablet 4 mg PO QHS PRN PRN (Reason: muscle spasms) RF: 0 omeprazole 20 mg capsule,delayed release(DR/EC) 20 mg PO DAILY RF: 0 zolpidem 10 mg tablet 10 mg PO QHS RF: 0 simvastatin 40 MG tablet 40 mg PO DAILY RF: 0 metformin 1,000 MG tablet 1,000 mg PO BIDCM RF: 0 lisinopril-hydrochlorothiazide 1 TABLET tablet 1 mg PO DAILY RF: 0 exenatide 10 mcg/dose(250 mcg/mL) 2.4 mL pen injector 10 mcg SC BIDAC RF: 0 Disposition Discharge Orders: Discharge Patient (Routine); Ordered 10/31/21 Ordered By: Dr. Harlan Davalos
[2021-10-31 11:20] VITALS: BP 102/65; BP 124/87; PULSE 76; RESP 12; TEMP 36.6; O2SAT 99
--- NOTE | 2021-10-31 11:20 | OP.PCM_ITS ---
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 He has elected to undergo surgical intervention. This was discussed with him, reviewed the possible benefits vs risks, goals, expectations, alternative options, and typical healing/post op recovery. The consent forms were reviewed with him, and he freely signed them. He would like to proceed forward. All of questions were answered. No guarantees were given nor implied. No warranties were given. Operative Procedure: The patient was brought back into the operating room and was placed on the operating room table in the supine position. Patient was carefully secured to the operating room table with a safety belt around the waist. A time out was performed and the patient was properly identified and the surgical plan was confirmed. The patient received 900mg IV clindamycin for antibiotic prophylaxis. A well padded pneumatic tourniquet was applied around the patient's left ankle. The patient received anesthesia per the anesthesiologist. The left foot was scrubbed, prepped, draped in the usual aseptic fashion. Further attention was directed to the left foot and there again was noted to be 4th and 5th hammer toes. A total of 15mL of 0.5% Bupivacaine pain was given as a 4th and 5th ray nerve block on the left foot. The left foot was exsanguinated with an Esmarch bandage and the ankle pneumatic tourniquet was inflated to 250mmHg. Left 4th digit hammer toe: A dorsal linear longitudinal incision was made over the proximal interphalangeal joint (PIPJ) of the toe. An incision was made longitudinally to the extensor digitorum longus tendon and split down the middle, leaving the ends intact, this was done with a 15 blade. The dorsal PIPJ joint capsule was incised with a 15 blade. The the cartilage of the proximal phalanx was resected using a powered sagittal saw, and cartilage from the base of the middle phalanx was resected using a sagittal saw. The site was flushed out with copious amounts of normal saline solution. An Arthrex FT compression screw was placed through the phalanges of the toe holding the toe in rectus position, however it did over correct the toe laterally and the screw was removed. The head of the proximal phalanx of the 4th toe was resected with a powered sagittal saw. This was confirmed with intra operative fluoroscopy. The site was flushed out with copious amounts of normal saline solution. The subcutaneous tissue was reapproximated using 4-0 Vicryl, and the skin was reapp roximated using 4-0 Nylon. Left 5th digit hammer toe: Two oblique semi-elliptical converging skin incisions were made around the dorsal aspect of the proximal interphalangeal joint (PIPJ) of the 5th toe. The skin within the incisions was excised. The extensor digitorum longus tendon was visualized and incised transversely with a 15 blade. The dorsal PIPJ joint capsule was incised with a 15 blade. The extensor tendon was reflected off of the head of the proximal phalanx. The PIPJ was visualized. The head of the proximal phalanx was resected using a powered sagittal saw, and this was sent to pathology. The site was flushed out with copious amounts of normal saline solution. The site was again flushed out with copious amounts of normal saline solution. The joint capsule and extensor digitorum longus tendon was reapproximated using 4-0 Vicryl, the skin was reapproximated using 4-0 Nylon. The pneumatic tourniquet was deflated (tourniquet time was 45 minutes) and there was immediate return of warmth and perfusion to the foot and to all toes on the foot with normal temperature gradient and CFT < 2 seconds to all toes. Toes were in rectus position. Hemostasis was achieved with pressure. Also of note all vital structures including all vital neurovascular and soft tissue structures were properly identified, retracted, and protected as necessary during the procedures. Also the above was completed with the aid of intra operative fluoroscopy as needed. Betadine soaked adaptic, 4x4 gauze, Kerlix, and bryson bandages were applied being sure to apply it not too tight. The patient tolerated the above operative procedure well at the anesthesia well with no complication. The patient was transported to the recovery room with vital signs stable and in good condition. Post operative orders were placed. Post operative instructions were reviewed and dispensed verbal and written - this was reviewed with patient and his who was with him today. No weightbearing left foot, keep foot elevated for at least 50 minutes of every hour, keep dressing clean, dry and intact. Patient is to follow up with me in 1 week, sooner if needed. Also post op foot xrays (left) were obtained and reviewed in the PACU. Grafts/Implants Used: None Complications None
[2021-10-31 11:25] VITALS: BP 106/63; BP 124/87; PULSE 79; RESP 16; O2SAT 93
[2021-10-31 11:30] VITALS: BP 106/63; BP 124/87; PULSE 78; RESP 16; O2SAT 92
--- NOTE | 2021-10-31 11:30 | RAD_ITS ---
EXAM: XR RIGHT FOOT COMPLETE, 3 OR MORE VIEWS CLINICAL INDICATION: post op POST OP RIGHT 4TH AND 5TH TOE ARTHROPLASTY/ARTHRODESIS TECHNIQUE: Frontal, lateral and oblique views of the right foot. This report was created using [employer] report [employer] technology. COMPARISON: None. FINDINGS: BONES/JOINTS: Osteotomy of the head of the 4th and 5th metatarsal heads. No acute fracture. No subluxation. Normal alignment. Preservation of the joint space. No sclerotic or destructive changes observed. SOFT TISSUES: Unremarkable. No soft tissue swelling or gas. No radiopaque foreign body. RAD/Foot min 3 Views IMPRESSION: Osteotomy of the head of the 4th and 5th metatarsal heads. Electronically Signed: aTnmay Vega MD at 17:15 EST Reading Location ID and State: [facility] / [place] , Service support ,
[2021-10-31 11:39] VITALS: BP 104/79; BP 124/87; PULSE 76; RESP 16; TEMP 36.6; O2SAT 94
[2021-10-31 12:31] VITALS: BP 115/70; BP 124/87; PULSE 90; RESP 18; TEMP 36.4; O2SAT 97
[2021-10-31] MEDS: HYDROcodone Bitartrate/Apap 5/325 Tablet PO (12:42)
== END 2021-10-31 23:59 | disposition home or self-care (01) ==
LOC: SDC 07:56 → AC 07:57
PROVIDERS: PCP Family Medicine; Referring Provider Podiatrist; Visit Provider Podiatrist
PROC: (CPT 28285; principal; 2021-10-31 09:15)
DX: M20.41 Other hammer toe(s) (acquired), right foot (principal); M19.071 Primary osteoarthritis, right ankle and foot; E11.9 Type 2 diabetes mellitus without complications; I10 Essential (primary) hypertension; Z79.4 Long term (current) use of insulin; Z79.899 Other long term (current) drug therapy
CPT/HCPCS: 28285 ×2; 73630; 73660; 76000; 82962; 88304; 88311; C1713; J7120; J2405